=== PATIENT | male | born 1990 | race Caucasian/White ===

== ENCOUNTER 2020-08-30 18:00 | Emergency (ER) | payer OTHER ==
[~2020-08-30] VITALS: Ht 185.4 cm; Wt 79.4 kg
[~2020-08-30 18:00] MED LIST: Bactrim Ds Tab1 EACH PO; Bactroban22 GM TOP; HYDACE5 PO; Keflex500 MG PO; OMEP40CA12 PO; ONDA4ODT MM; OXYACE5T PO; PROM25 PO; Prednisone10 MG PO
== END 2020-08-30 19:00 | disposition home or self-care (01) ==
LOC: ER 18:00
DX: S61.212A Laceration without foreign body of right middle finger without damage to nail, initial encounter (principal); F17.200 Nicotine dependence, unspecified, uncomplicated; Z23 Encounter for immunization; Z91.012 Allergy to eggs; W45.8XXA Other foreign body or object entering through skin, initial encounter
CPT/HCPCS: 12001; 90471; 90714; 99282-25